=== PATIENT | male | born 1985 | race African-American/Black ===

== ENCOUNTER 2017-08-19 19:00 | Emergency (ER) | payer SELFPAY ==
[2017-08-19 19:14] VITALS: BP 147/86; PULSE 88; TEMP 97.6; BMI 19.5
--- NOTE | 2017-08-19 19:56 | PDOC ---
History of Present Illness - General Chief Complaint: Pain Stated Complaint: INJURY Time Seen by Provider: 08/19/17 19:43 History Source: Patient Exam Limitations: No Limitations - History of Present Illness Initial Comments: CHIEF COMPLAINT: 31 y/o afebrile male c/o left ankle pain s/p injury today. HISTORY OF PRESENT ILLNESS: The patient was playing basketball today when he fell onto his left foot and twisted it. He states he was not able to walk on it after that. He is crying in pain. He took no pain medication before coming to the ER. Vital signs on arrival are within normal limits. REVIEW OF SYSTEMS: GENERAL/CONSTITUTIONAL: No fever/chills. MUSCULOSKELETAL: +left ankle pain. No neck or back pain. SKIN: No rash or easy bruising. NEUROLOGIC: No headache, vertigo, loss of consciousness, or loss of sensation. PHYSICAL EXAM: VITAL_SIGNS: within normal limits GENERAL_APPEARANCE: alert, cooperative, crying in pain while being wheeled in wheelchair. MENTAL_STATUS: speech clear, oriented X 3, responds appropriately to questions. NEURO: motor intact and sensory intact in injured extremity. EXTREMITIES: 2+ dorsalis pedis pulse in left foot. No swelling to left foot/ ankle. No obvious deformity to left foot ankle. Patient is guarding and will not allow me to touch affected extremity. SKIN: warm, dry, good color. Past History - Past Medical History Allergies/Adverse Reactions: Allergies Allergy/AdvReac Type Severity Reaction Status Date / Time No Known Allergies Allergy Verified 08/19/17 19:11 Home Medications: Ambulatory Orders No Home Medications 0 dose .ROUTE UTDICT 03/20/13 COPD: No Other medical history: Pt denies - Suicide/Smoking/Psychosocial Hx Smoking Status: No Smoking History: Never smoked Have you smoked in the past 12 months: No Number of Cigarettes Smoked Daily: 0 Information on smoking cessation initiated: No Hx Alcohol Use: No Drug/Substance Use Hx: No Substance Use Type: None *Physical Exam - Vital Signs Last Vital Signs Temp Pulse Resp BP Pulse Ox 97.6 F 88 18 147/86 98 08/19/17 19:11 08/19/17 19:11 08/19/17 19:11 08/19/17 19:11 08/19/17 19:11 Medical Decision Making - Medical Decision Making A/P: 31 y/o male with left ankle injury. Plan is as follows: 1. LEft ankle xray 2. PO motrin. Left ankle xray IMPRESSION: (wet read) No acute fracture. No lisfranc deformity. Gave patient the results. WIll wrap with ASH bandage and give RICE instructions. Suggested he take Motrin every 6 hours with food for pain and f/ u with Dr. Nolasco in 2 weeks if no improvement in symptoms. The patient verbalizes understanding of all instructions, has no further questions and is awaiting discharge. *DC/Admit/Observation/Transfer Diagnosis at time of Disposition: Ankle sprain Qualifiers: Encounter type: initial encounter Involved ligament of ankle: unspecified ligament Laterality: left Qualified Code(s): S93.402A - Sprain of unspecified ligament of left ankle, initial encounter - Discharge Dispostion Disposition: HOME Condition at time of disposition: Good - Referrals Referrals: Truong Nolasco MD [Staff Physician] - - Patient Instructions Printed Discharge Instructions: DI for Ankle Sprain, How To Perform RICE (Rest , Ice, Compress, Elevate) Additional Instructions: Discharge Instructions: -You have an ankle sprain -The xray of your foot and ankle showed no broken bones -please keep your ankle wrapped in ASH bandage for comfort -Follow RICE instructions -Take 600mg of over the counter Ibuprofen every 6 hours with food for pain/ swelling -Follow up with Dr. Nolasco in 2 weeks if no improvement in symptoms - Post Discharge Activity
[2017-08-19] MEDS ORDERED: IBUPROFEN 400 MG TABLET (FP) PO ONE ×2 (19:57→19:59)
== END 2017-08-20 00:46 | disposition home or self-care (01) ==
LOC: JERFT 19:00
DX: S93.402A Sprain of unspecified ligament of left ankle, initial encounter (principal); W18.30XA Fall on same level, unspecified, initial encounter; Y93.67 Activity, basketball; Y92.310 Basketball court as the place of occurrence of the external cause; Y99.8 Other external cause status
CPT/HCPCS: 73610-TC-LT-FY; 73630-TC-LT; 99281-25